=== PATIENT | male | born 1950 | race Caucasian/White ===

== ENCOUNTER 2017-02-04 17:30 | Inpatient (IN) | payer MEDICARE ==
[~2017-02-04] VITALS: Ht 172.7 cm; Wt 73.1 kg
[2017-02-04] MEDS ORDERED: ZIPRASIDONE 20 MG INJ IM ONE ×2 (18:19→18:30)
[2017-02-04 18:38] LABS: DAU SCREEN DISCLAIMER
[2017-02-04 19:13] LABS: BLOOD UREA NITROGEN 4 mg/dL (7-18)
[2017-02-04 19:16] LABS: ASPARTATE AMINO TRANSFERASE 260 U/L (15-37)
[2017-02-04 19:20] LABS: ACETAMINOPHEN < 2 mcg/mL (10-30)
[2017-02-05] MEDS ORDERED: POTASSIUM CHLORIDE 20 MEQ, MAGNESIUM SULFATE 2 GM, THIAMINE 100 MG, MVI ADULT 10 ML, FO... IV SCH ×2 (01:44→10:19)
[2017-02-05] MEDS ORDERED: OXYcodone IR 5MG TABLET PO PRN (02:00)
[2017-02-05] MEDS ORDERED: POLYETHYLENE GLYCOL 17 GM PACKET PO PRN (02:00)
[2017-02-05] MEDS ORDERED: TEMAZEPAM 15 MG CAPSULE PO PRN (02:00)
[2017-02-05] MEDS ORDERED: ONDANSETRON 2MG/ML, 2ML IVPush PRN (02:00)
[2017-02-05] MEDS ORDERED: LABETALOL 5MG/ML, 20ML IVPush PRN (02:00)
[2017-02-05] MEDS: SODIUM CHLORIDE 0.9% 1,000 ML IV SCH ×3 (02:14→20:34)
[2017-02-05] MEDS ORDERED: LORazepam 2 MG/ML, 1ML ONE (02:16)
[2017-02-05] MEDS: LORazepam 2 MG/ML, 1ML IVPush PRN ×3 (02:18→20:38)
[2017-02-05] MEDS: CHLORDIAZEPOXIDE 25 MG CAPSULE PO SCH ×4 (04:11→20:34)
[2017-02-05 04:20] VITALS: BP 163/71
[2017-02-05] MEDS: ENOXAPARIN 40 MG/0.4 ML SQ SCH (07:38)
[2017-02-05] MEDS: SENNA/DOCUSATE TABLET PO SCH (07:38)
[2017-02-05 07:48] VITALS: BP 164/88
[2017-02-05] MEDS ORDERED: ZIPRASIDONE 20MG CAPSULE PO SCH (09:00)
[2017-02-05 14:08] VITALS: BP 156/78
[2017-02-05 19:34] VITALS: BP 141/82
[2017-02-05] MEDS: ZIPRASIDONE 20MG CAPSULE PO SCH (20:34)
[2017-02-06 02:27] VITALS: BP 165/87
[2017-02-06] MEDS: POTASSIUM CHLORIDE 20 MEQ, MAGNESIUM SULFATE 2 GM, THIAMINE 100 MG, MVI ADULT 10 ML, FO... IV SCH (04:42)
[2017-02-06 05:28] LABS: ASPARTATE AMINO TRANSFERASE 92 U/L (15-37); BLOOD UREA NITROGEN 3 mg/dL (7-18)
[2017-02-06] MEDS: ENOXAPARIN 40 MG/0.4 ML SQ SCH (07:54)
[2017-02-06] MEDS: CHLORDIAZEPOXIDE 25 MG CAPSULE PO SCH ×2 (07:55→09:00)
[2017-02-06] MEDS: ZIPRASIDONE 20MG CAPSULE PO SCH ×3 (07:55→19:44)
[2017-02-06] MEDS: SENNA/DOCUSATE TABLET PO SCH (07:56)
[2017-02-06 08:09] VITALS: BP 155/79
[2017-02-06] MEDS ORDERED: POTASSIUM CHLORIDE 20 MEQ TAB.ER.PRT PO ONE (08:30)
[2017-02-06] MEDS: SODIUM CHLORIDE 0.9% 1,000 ML IV SCH ×3 (10:20→21:41)
[2017-02-06 12:23] VITALS: BP 164/87
[2017-02-06] MEDS: LORazepam 2 MG/ML, 1ML IVPush PRN ×4 (13:54→23:19)
[2017-02-06 19:38] VITALS: BP 170/80
[2017-02-07] MEDS ORDERED: CHLORDIAZEPOXIDE 25 MG CAPSULE PO PRN (00:30)
[2017-02-07 01:13] VITALS: BP 176/90
[2017-02-07] MEDS: LORazepam 2 MG/ML, 1ML IVPush PRN ×2 (01:24→03:33)
[2017-02-07 05:29] LABS: ASPARTATE AMINO TRANSFERASE 73 U/L (15-37); BLOOD UREA NITROGEN 1 mg/dL (7-18)
[2017-02-07] MEDS: POTASSIUM CHLORIDE 20 MEQ, MAGNESIUM SULFATE 2 GM, THIAMINE 100 MG, MVI ADULT 10 ML, FO... IV SCH (05:34)
[2017-02-07] MEDS: SENNA/DOCUSATE TABLET PO SCH (07:26)
[2017-02-07 07:30] VITALS: BP 170/93
[2017-02-07] MEDS: CHLORDIAZEPOXIDE 25 MG CAPSULE PO SCH (07:45)
[2017-02-07] MEDS: ENOXAPARIN 40 MG/0.4 ML SQ SCH (07:45)
[2017-02-07] MEDS: ZIPRASIDONE 20MG CAPSULE PO SCH ×2 (07:45→20:15)
[2017-02-07] MEDS: SODIUM CHLORIDE 0.9% 1,000 ML IV SCH ×2 (10:27→20:15)
[2017-02-07 11:17] LABS: HEPATITIS C VIRUS ANTIBODY Nonreactive (Nonreactive)
[2017-02-07] MEDS ORDERED: LORazepam 2 MG/ML, 1ML IV PRN (12:00)
[2017-02-07] MEDS ORDERED: LORazepam 1MG TABLET PO PRN (12:00)
[2017-02-07] MEDS ORDERED: LORazepam 0.5MG TABLET PO PRN (12:00)
[2017-02-07 12:03] VITALS: BP 171/92
[2017-02-07] MEDS: LORazepam 2 MG/ML, 1ML IV PRN ×2 (17:15→22:45)
[2017-02-07 19:16] VITALS: BP 153/71
[2017-02-08] MEDS: LORazepam 2 MG/ML, 1ML IV PRN (00:13)
[2017-02-08 02:11] VITALS: BP 144/69
[2017-02-08] MEDS: SODIUM CHLORIDE 0.9% 1,000 ML IV SCH ×2 (04:39→21:01)
[2017-02-08 07:44] VITALS: BP 162/92
[2017-02-08] MEDS: POTASSIUM CHLORIDE 20 MEQ, MAGNESIUM SULFATE 2 GM, THIAMINE 100 MG, MVI ADULT 10 ML, FO... IV SCH (07:45)
[2017-02-08] MEDS: CHLORDIAZEPOXIDE 25 MG CAPSULE PO SCH (07:45)
[2017-02-08] MEDS: ZIPRASIDONE 20MG CAPSULE PO SCH ×2 (07:45→21:00)
[2017-02-08] MEDS: ENOXAPARIN 40 MG/0.4 ML SQ SCH (07:45)
[2017-02-08] MEDS: SENNA/DOCUSATE TABLET PO SCH (07:45)
[2017-02-08 13:59] VITALS: BP 152/90
[2017-02-08 20:39] VITALS: BP 159/95
[2017-02-09 01:47] VITALS: BP 145/88
[2017-02-09] MEDS: SODIUM CHLORIDE 0.9% 1,000 ML IV SCH (04:05)
[2017-02-09] MEDS: SENNA/DOCUSATE TABLET PO SCH (07:40)
[2017-02-09 07:57] VITALS: BP 167/86
[2017-02-09] MEDS: POTASSIUM CHLORIDE 20 MEQ, MAGNESIUM SULFATE 2 GM, THIAMINE 100 MG, MVI ADULT 10 ML, FO... IV SCH (08:25)
[2017-02-09] MEDS: CHLORDIAZEPOXIDE 25 MG CAPSULE PO SCH (08:25)
[2017-02-09] MEDS: ENOXAPARIN 40 MG/0.4 ML SQ SCH (08:25)
[2017-02-09] MEDS: ZIPRASIDONE 20MG CAPSULE PO SCH ×2 (08:25→19:44)
[2017-02-09] MEDS ORDERED: CHLORDIAZEPOXIDE 10 MG CAPSULE PO PRN (11:30)
[2017-02-09 13:45] VITALS: BP 138/85
[2017-02-09] MEDS: LORazepam 2 MG/ML, 1ML IV PRN (16:44)
[2017-02-09 18:59] VITALS: BP 151/86
[2017-02-10 01:05] VITALS: BP 148/78
[2017-02-10 06:57] VITALS: BP 154/81
[2017-02-10] MEDS: ZIPRASIDONE 20MG CAPSULE PO SCH (07:49)
[2017-02-10] MEDS: SENNA/DOCUSATE TABLET PO SCH (07:49)
[2017-02-10] MEDS: ENOXAPARIN 40 MG/0.4 ML SQ SCH (07:49)
[2017-02-10] MEDS: POTASSIUM CHLORIDE 20 MEQ, MAGNESIUM SULFATE 2 GM, THIAMINE 100 MG, MVI ADULT 10 ML, FO... IV SCH (07:50)
[2017-02-10] MEDS ORDERED: CHLORDIAZEPOXIDE 10 MG CAPSULE PO SCH (08:30)
[2017-02-10] MEDS ORDERED: DOXYCYCLINE 100MG TABLET PO SCH (09:00)
[2017-02-10 12:44] VITALS: BP 138/88
[2017-02-10] MEDS ORDERED: LIDOCAINE 2%, 20ML INFIL ONE (15:30)
[2017-02-10] MEDS ORDERED: HYDROcodone/APAP 5/325 TABLET PO PRN (17:45)
[2017-02-10 18:37] VITALS: BP 169/88
[2017-02-11] MEDS ORDERED: CHLORDIAZEPOXIDE 5 MG CAPSULE PO SCH (08:00)
== END 2017-02-10 20:17 | DRG 885 ==
LOC: ED 21:15 → EDIP 02-05 01:16 → OBSVTOIN 02-05 01:16 → 3NE 02-05 03:55
PROVIDERS: ADMIT Internal Medicine; ATTEND Internal Medicine
DX: F31.9 Bipolar disorder, unspecified (principal); F23 Brief psychotic disorder; R45.851 Suicidal ideations; E87.1 Hypo-osmolality and hyponatremia; F10.239 Alcohol dependence with withdrawal, unspecified; F19.10 Other psychoactive substance abuse, uncomplicated; R45.850 Homicidal ideations; E87.6 Hypokalemia; F19.129 Other psychoactive substance abuse with intoxication, unspecified; F15.129 Other stimulant abuse with intoxication, unspecified; I10 Essential (primary) hypertension; Z91.5 Personal history of self-harm; R56.9 Unspecified convulsions; F12.90 Cannabis use, unspecified, uncomplicated; Z80.9 Family history of malignant neoplasm, unspecified; D64.9 Anemia, unspecified
CPT/HCPCS: 36415; 71010; 80053; 80074; 80307; 80329; 81001; 83735; 84100; 84443; 85025; 96372; J1650; J3411; J3475; J3480; J3486; J3490; J7042; G0480; J2060; J7030